=== PATIENT | female | born 1950 | race Caucasian/White ===

== ENCOUNTER → 2016-09-18 | Outpatient (CLI) | payer MEDICARE, BC ==
--- NOTE | 2016-09-18 11:37 | RADRPT ---
PROCEDURE: XR pelvis / bilateral hips. CLINICAL INDICATION: Hip pain TECHNIQUE: AP pelvis/AP and lateral right hip views available for review. COMPARISON: None available FINDINGS: The osseous structures are normal in mineralization, architecture and alignment. No fractures are i dentified. No osseous lesions are identified. The joints are unremarkable. The soft tissues are u nremarkable. IMPRESSION: Unremarkable examination RPTAT: [facility] .Usman Cruz MD, MD Date Time Electronically viewed and signed by .Usman Cruz MD, on 09/18/2016 11:37 .B/
== END | disposition home or self-care (01) ==
LOC: HKI 10:32
PROVIDERS: ATTEND Orthopaedic Surgery
DX: C79.51 Secondary malignant neoplasm of bone (principal)
CPT/HCPCS: 73523; G0463

== ENCOUNTER → 2016-10-11 | Outpatient (CLI) | payer MEDICARE, BC | END | disposition home or self-care (01) | LOC: HKI 10:07 | PROVIDERS: ATTEND Orthopaedic Surgery | DX: C79.51 Secondary malignant neoplasm of bone (principal) | CPT/HCPCS: G0463 ==